=== PATIENT | male | born 1975 | race Caucasian/White ===

== ENCOUNTER 2021-01-13 07:40 | Outpatient (CLI) | payer BC, SELFPAY ==
--- NOTE | ~2021-01-13 | US_ITS ---
US retroperitoneal comp 01/13/2021 08:13 Procedure: Realtime transabdominal ultrasound of the kidneys and bladder. Indication: Decreased renal function Comparison: No prior studies for comparison. Findings: Renal echotexture is normal bilaterally without hydronephrosis, contour deforming mass or r enal calculus. The right kidney measures 11.4 cm and left kidney measures 11.3 cm. Bladder within no rmal limits. Impression: 1: Unremarkable renal ultrasound. No stones, masses or hydronephrosis. Reviewed, dictated and finalized at location B. ER ENGINEER Impression: 1: Unremarkable renal ultrasound. No stones, masses or hydronephrosis.
== END 2021-01-13 07:41 | disposition home or self-care (01) ==
LOC: ANHIMG 07:43
PROVIDERS: PCP Student in an Organized Health Care Education/Training Program; Visit Provider Student in an Organized Health Care Education/Training Program
DX: N28.9 Disorder of kidney and ureter, unspecified (principal)
CPT/HCPCS: 76770

== ENCOUNTER 2021-09-01 16:50 | Outpatient (CLI) | payer BC, SELFPAY ==
--- NOTE | ~2021-09-01 | MR_ITS ---
EXAMINATION: MR knee LT wo con DATE: 09/01/2021 17:37 INDICATION: Left knee medial collateral ligament injury. TECHNIQUE: Magnetic resonance imaging (MRI) of the left knee was performed without intravenous contra st. Sequences included coronal PD-weighted FSE, coronal PD-weighted FS FSE, sagittal T2-weighted FSE , sagittal PD-weighted FS FSE and axial PD weighted fat saturated FSE. COMPARISON: None. FINDINGS: Medial compartment: Longitudinal horizontal tear of the medial meniscus which extends to the superior articular surface a t the meniscal body, crossing the free edge and extending to the inferior articular surface at the po sterior horn. There is partial subluxation of the meniscus at the junction of the body and posterior horn inferior to the tear plane across the posterior medial rim of the medial tibial plateau with mil d underlying marrow edema. Articular cartilage is normal. Lateral compartment: Lateral meniscus is normal. Deep chondral fissure at the posterior medial aspect of the lateral tibia l plateau with tiny underlying focus of subarticular marrow edema-like signal change . Patellofemoral compartment: Deep chondral fissuring without degenerative subchondral changes at the medial and lateral patellar f acets and intervening apical ridge. Region of full-thickness chondral ulceration with subtle underlyi ng cortical irregularity and symmetrically cystlike changes at the central to lateral aspect of the l ateral trochlea. Shallow chondral ulceration at the superolateral aspect of the medial trochlea. Ligaments and tendons: Anterior and posterior cruciate ligaments are normal. There is mild increased fluid signal extending along the deep and superficial margins of the proximal medial collateral ligament which appears other padilla normal. This could be seen with low-grade strain but could also represent reactive edema related to the adjacent meniscal tear. The fibular collateral ligament complex is normal. The extensor mecha nism is normal. The visualized medial and lateral hamstring tendons as well as the iliotibial band ar e normal. Fluid: Small left knee joint effusion. Small Bach's cyst. There is edema in the medial aspect of Hoffa's fa t pad surrounding a small multiloculated ganglion cyst located anterior the anterior root of the medi al meniscus. No loose osteochondral bodies identified. Osseous/other: Bone alignment is normal. No fracture or pathologic marrow replacing process. IMPRESSION: 1. 1 longitudinal horizontal tear of the body and posterior horn of the medial meniscus which crosses from the superior to the inferior articular surfaces at the junction of the body and posterior horn. 2. 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 3. Mild edema along the otherwise normal-appearing medial collateral ligament which could be seen wit h low-grade sprain but is more likely reactive edema related to the adjacent medial meniscal tear. 2. 4. Small left knee joint effusion and small Bach's cyst. Reviewed, dictated and finalized at location A. IMPRESSION: 1. 1 longitudinal horizontal tear of the body and posterior horn of the medial meniscus which crosses from the superior to the inferior articular surfaces at the junction of the body and posterior horn. 2. 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 3. Mild edema along the otherwise normal-appearing medial collateral liga
== END 2021-09-01 16:51 | disposition home or self-care (01) ==
PROVIDERS: PCP Student in an Organized Health Care Education/Training Program
DX: S83.242A Other tear of medial meniscus, current injury, left knee, initial encounter (principal); X58.XXXA Exposure to other specified factors, initial encounter; M17.12 Unilateral primary osteoarthritis, left knee
CPT/HCPCS: 73721

== ENCOUNTER 2022-04-10 01:45 | Day surgery (SDC) | payer BC, SELFPAY ==
[2022-03-06 09:01] VITALS: BMI 25.1
--- NOTE | 2022-03-27 12:19 | PC.NURSE ---
Confirmed new date and time of procedure with patient. Patient did report a new medication and that was added to patient's medication list. Patient stated there is nothing else new that needs to be added to his chart.
[2022-04-10 13:03] VITALS: BP 117/81; PULSE 61; RESP 16; TEMP 36.6; O2SAT 99
[2022-04-10] MEDS: LACTATED RINGERS 1,000 ML 150 ML IV CONT (13:15)
--- NOTE | 2022-04-10 13:34 | WPDANESEPPF ---
Anes - Initial Pre Proc Eval Procedure: Operation Date: 04/10/22 14:00 Proposed Procedures p Screening Colonoscopy - Tejas Murillo MD Date/Time: 04/10/22 13:34 Surgeon: Tejas Murillo MD Pre Op Diagnosis: neoplasm screening Patient Data Age: 47 Gender: M Height: 1.85 m Weight: 91.1 kg Last Vital Signs Temp 98 F 04/10/22 13:03 Pulse 61 04/10/22 13:03 Resp 16 04/10/22 13:03 BP 117/81 04/10/22 13:03 Pulse Ox 99 04/10/22 13:03 O2 Del Method Room Air 04/10/22 13:03 Allergies Allergy/AdvReac Type Severity Reaction Status Date / Time No Known Allergies Allergy Verified 04/10/22 13:02 Home Medications Medication Instructions Recorded Confirmed Type cetirizine 10 mg tablet (Zyrtec) 10 mg PO DAILY 03/06/22 03/06/22 History glucosamine-chondroitin 250 mg-200 2 tablet PO TID 03/06/22 03/06/22 History mg tablet (Osteo Bi-Flex) montelukast 10 mg tablet 10 mg PO DAILY 03/06/22 03/06/22 History multivitamin with minerals-folic 1 tablet PO DAILY 03/06/22 03/06/22 History acid 0.4 mg tablet omega-3 fatty acids-vitamin E 1 cap PO DAILY 03/06/22 03/06/22 History 1,000 mg capsule rosuvastatin 5 mg tablet 5 mg PO DAILY 03/27/22 03/27/22 History Patient hx anesthesia problems: none Family hx anesthesia problems: none Results Review: All pre-operative results and documents have been reviewed as part of the pre-operative evaluation. [facility] Past Medical History Medical History (Updated 12/18/18 @ 00:00 by Morena Macedo) Seasonal allergic reaction Social History Social History Smoking status: Never smoker Alcohol intake: current Drinks per week: 8 Substance use type: does not use Living arrangements: with family Spiritual care concerns: No Anes - Eval Final PreProcedure Day of Procedure 04/10/22 13:34 Patient weight: normal Heart: regular rate and rhythm Lungs: clear to auscultation Airway: Mallampati scale class II Neurological: alert and oriented Last oral intake: >/= 8 hours ASA classification: II Emergent: no Anesthetic plan: proceed Anesthesia type and monitoring: general GIVS and standard monitoring Results Review: All pre-operative results and documents have been reviewed as part of the pre-operative evaluation. Informed Consent: The patient's anesthetic plan and its attendant risks and benefits were discussed with the patient/family/POA. Questions were solicited and answers provided to the satisfaction of the patient/family/POA.
--- NOTE | 2022-04-10 13:44 | PM.HPGS ---
History of Present Illness History of Present Illness Consent: Risks, benefits, and alternatives have been discussed and questions answered. Patient agrees to proceed with procedure. Chief complaint: neoplasm screening Narrative: Shelton Christie is a 47 year old male here for first screening colonoscopy Review of Systems Constitutional: Constitutional: Denies headache(s) and Denies weakness Eyes: Eyes: Denies blurry vision ENT: Reports Normal hearing present, Denies headache(s) and Denies neck pain Cardiovascular: Cardiovascular: Denies chest pain and Denies dyspnea Respiratory: Respiratory: Denies dyspnea Gastrointestinal: Gastrointestinal: Reports no additional gastrointestinal complaints Genitourinary: Genitourinary: Denies dysuria Musculoskeletal: Musculoskeletal: Denies neck pain Integumentary/Breasts: Skin/Breast: Denies dry skin Neurologic: Reports Normal hearing present, Denies headache(s) and Denies weakness Psychiatric: Psychiatric: Denies anxiety Endocrine: Endocrine: Denies change in body appearance Hematologic/Lymphatic: Hematologic/Lymphatic: Denies easy bleeding Allergic/Immunologic: Allergic/Immunologic: Denies urticaria PMF Past Medical History Medical History (Updated 04/10/22 @ 13:44 by Tejas Murillo MD) Colon cancer screening Seasonal allergic reaction Social History Social History Smoking status: Never smoker Alcohol intake: current Drinks per week: 8 Substance use type: does not use Living arrangements: with family Spiritual care concerns: No Meds Home Medications and Allergies Home Medications Medication Instructions Recorded Confirmed Type cetirizine 10 mg tablet (Zyrtec) 10 mg PO DAILY 03/06/22 03/06/22 History glucosamine-chondroitin 250 mg-200 2 tablet PO TID 03/06/22 03/06/22 History mg tablet (Osteo Bi-Flex) montelukast 10 mg tablet 10 mg PO DAILY 03/06/22 03/06/22 History multivitamin with minerals-folic 1 tablet PO DAILY 03/06/22 03/06/22 History acid 0.4 mg tablet omega-3 fatty acids-vitamin E 1 cap PO DAILY 03/06/22 03/06/22 History 1,000 mg capsule rosuvastatin 5 mg tablet 5 mg PO DAILY 03/27/22 03/27/22 History Allergies Allergy/AdvReac Type Severity Reaction Status Date / Time No Known Allergies Allergy Verified 04/10/22 13:02 Vital Signs Vital Signs - 24 hr 04/10/22 13:03 Temperature 98 F Pulse Rate 61 Respiratory Rate 16 Blood Pressure 117/81 Pulse Oximetry 99 Oxygen Delivery Room Air Exam Const: General: comfortable and no acute distress HENMT: Face/Nose/Sinus: Normal nares present Eyes: General: appearance normal, both eyes and all related structures Neck: Neck: no JVD Resp: Auscultation: clear to auscultation bilaterally Cardio: Rate: regular rate Rhythm: regular rhythm GI: Inspection: non-distended GI Palp: Yes Soft to palpation Skin: General skin exam: normal color Neuro: General: gait normal Speech: normal speech Extrem: General: normal to inspection Psych: Mental Status: mental status grossly normal Assessment and Plan Assessment and plan (1) Colon cancer screening: Code(s): Z12.11 - Encounter for screening for malignant neoplasm of colon Status: Acute Assessment and Plan: colonoscopy
[2022-04-10 14:06] VITALS: BP 101/67; PULSE 80; RESP 19; O2SAT 98
[2022-04-10 14:16] VITALS: BP 105/71; PULSE 70; RESP 22; O2SAT 97
[2022-04-10 14:26] VITALS: BP 121/70; PULSE 68; RESP 19; O2SAT 98
== END 2022-04-10 14:54 | disposition home or self-care (01) ==
PROVIDERS: PCP Student in an Organized Health Care Education/Training Program; Visit Provider Internal Medicine Gastroenterology
PROC: 0DJD8ZZ Inspection of Lower Intestinal Tract, Via Natural or Artificial Opening Endoscopic (ICD-10-PCS; CPT 45378; principal; 2022-04-10 14:00)
DX: Z12.11 Encounter for screening for malignant neoplasm of colon (principal); K63.5 Polyp of colon; K64.8 Other hemorrhoids
CPT/HCPCS: 45385; 88305; J2704; J7120

== ENCOUNTER 2022-11-03 13:35 | Emergency (ER) | payer BC, SELFPAY ==
--- NOTE | ~2022-11-03 | XR_ITS ---
Clinical Indication: Chest pain PA and lateral views of the chest: Comparison: None Findings: The lungs are clear, without evidence of focal consolidation or pleural effusion. Cardiome diastinal silhouette is within normal limits. Bones and soft tissues are unremarkable. Impression: Normal chest. Reviewed, dictated and finalized at location . Impression: Normal chest.
--- NOTE | 2022-11-03 13:37 | ECG_ITS ---
Measurements Intervals [place] Rate: 65 P: 33 ID: 153 QRS: 35 QRSD: 103 T: 37 QT: 389 QTc: 406 Interpretive Statements SINUS RHYTHM BORDERLINE R WAVE PROGRESSION, ANTERIOR LEADS MINIMAL Q WAVES- INFERIOR LEADS BASELINE ARTIFACT- I, III, AVR, AVL BORDERLINE ECG NO PREVIOUS ECG AVAILABLE FOR COMPARISON Electronically Signed On 11-03-2022 13:55:33 CDT by Ruben Shabazz D.O.
[2022-11-03 13:40] VITALS: BP 155/95; PULSE 69; RESP 18; TEMP 36.7; O2SAT 100
[2022-11-03 13:59] LABS: Basophils Absolute Auto 0.1 K/mm3 (0.0-0.1); Basophils Percent Auto 0.6 % (0.2-1.2); Eosinophils Absolute Auto 0.3 K/mm3 (0-0.3); Eosinophils Percent Auto 2.7 % (0-4.4); Hemoglobin 16.2 g/dL (14.0-18.0); Immature Granulocyte Absolute 0.03 K/mm3 (0.00-0.031); Immature Granulocyte Percent A 0.3 % (0-0.5); Lymphocytes Absolute Auto 2.94 K/mm3 (0.9-3.2); Lymphocytes Percent Auto 28.3 % (18.3-44.2); Mean Corpuscular HGB Conc 33.1 g/dl (32-36); Mean Corpuscular Hemoglobin 31.3 pg (26-34); Mean Corpuscular Volume 94.6 fl (80-100); Mean Platelet Volume 11.8 fl (7.4-10.4); Monocytes Percent Auto 9.2 % (2.6-8.5); Neutrophils Absolute Auto 6.1 K/mm3 (1.3-6.7); Neutrophils Percent Auto 58.9 % (45.5-73.1); Platelet Count Result 200 k/mm3 (150-375); Red Blood Count 5.18 M/mm3 (4.6-6.20); White Blood Count 10.4 K/mm3 (4.5-10.0)
[2022-11-03 14:11] LABS: Alanine Aminotransferase 32 U/L (6-50); Albumin Level 4.8 g/dL (3.5-5.1); Alkaline Phosphatase 60 U/L (38-126); Anion Gap 9 mmol/L (8-16); Aspartate Amino Transferase 41 U/L (17-59); Bilirubin,Total 0.9 mg/dL (0.2-1.3); Blood Urea Nitrogen 15 mg/dL (9-20); Carbon Dioxide 26 mmol/L (22-30); Chloride 105 mmol/L (98-107); Estimated CRCL calculation 93 ml/min; Estimated Glomerular Filt Rate > 60; Glucose 91 mg/dL (65-110); Lipase 101 U/L (23-300); Potassium 4.3 mmol/L (3.4-5.0); Sodium 140 mmol/L (137-145)
[2022-11-03 14:14] LABS: INR 0.9; Prothrombin Time 12.9 Seconds (11.1-14.7)
[2022-11-03 14:15] LABS: Partial Thromboplastin Time 23.8 SECONDS (22.3-36.8)
[2022-11-03 14:18] LABS: Troponin I < 0.012 ng/mL (0.000-0.034)
[2022-11-03 17:16] LABS: Troponin I < 0.012 ng/mL (0.000-0.034)
== END 2022-11-03 14:00 | disposition left against medical advice (07) ==
PROVIDERS: Emergency Provider Emergency Medicine; PCP Student in an Organized Health Care Education/Training Program
DX: R07.9 Chest pain, unspecified (principal)
CPT/HCPCS: 36415; 71046; 80053; 83690; 84484; 85025; 85610; 85730; 93005; 99199

== ENCOUNTER 2024-07-14 16:55 | Emergency (ER) | payer BC, SELFPAY ==
[2024-07-14] VITALS (37 sets, daily range): BP systolic 110–166; BP diastolic 62–102; PULSE 101–134; RESP 12–30; TEMP 36.8; O2SAT 95–100
--- NOTE | ~2024-07-14 | CT_ITS ---
CTA chest PE protocol Ordering provider: Riya Baumann PA-C History: 49 years Male with . sob cp, uri, tachy . Comparison: None. Technique: CT angiogram chest was performed following timed intravenous injection of contrast. Thin s lice axial images and reformatted coronal images were obtained. Three dimensional reformatted images of the chest were also obtained using a [employer] workstation. . Automated exposure control and iterati ve reconstruction technique were employed. The dose-length product was 467.86 mGy-cm. 100 mL Omnipaqu e 350 was given IV. Findings: PULMONARY ARTERIES: No pulmonary embolus. VISUALIZED THORACIC INLET: Normal. MEDIASTINUM: Aorta/coronary arteries: The thoracic aorta is normal. Heart/other: The heart is not enlarged. Lymph nodes: No mediastinal or hilar adenopathy. LUNGS: Bibasilar atelectasis versus pneumonia. Serpiginous density seen in the right parahilar area which me asures 2.5 x 0.[address] follow-up is advised. No pulmonary nodules or masses. No infiltrates or effusions. No pneumothorax. VISUALIZED UPPER ABDOMEN: Small sliding hiatus hernia. Tiny cyst in the right lobe of the liver. Othe rwise, the visualized upper abdomen is normal. MUSCULOSKELETAL: Soft tissues: The superficial soft tissues are normal. Bones: Age appropriate degenerative changes of the spine. IMPRESSION: 1. No pulmonary embolism. 2. Bibasilar atelectasis versus pneumonia. Clinical correlation and follow-up advised. 3. Small sliding hiatus hernia Reviewed, dictated and finalized at location A.
--- NOTE | ~2024-07-14 | XR_ITS ---
XR chest 2V Ordering provider: Riya Baumann PA-C History: 49 years Male with . cough, uri, sob . Comparison: November 03, 2022 FINDINGS: MEDIASTINUM: The cardiac silhouette is not enlarged. LUNGS: No infiltrates, effusions or pneumothorax. OTHER: No free air under the diaphragm. Degenerative changes of the spine. IMPRESSION: No acute cardiopulmonary pathology. Reviewed, dictated and finalized at location A.
--- NOTE | 2024-07-14 17:13 | ECG_ITS ---
Test Date: 2024-07-14 17:57:40 Measurements Intervals [place] Rate: 117 P: 47 NM: 124 QRS: 15 QRSD: 106 T: 50 QT: 341 QTc: 476 Interpretive Statements SINUS TACHYCARDIA NONSPECIFIC T-WAVE ABNORMALITY ABNORMAL RHYTHM ECG No previous ECG available for comparison Electronically Signed On 07-15-2024 07:38:01 CDT by Yousif Zendejas M.D.
--- OUTSIDE RECORDS SUMMARY | 2024-07-14 17:33 | XMS_ITS | Referral Summary ---
[facility] Organization [facility] Address [address] [place] [address] Care Team Providers Care Fish And Game Club Manager Name Role Phone Jose Collazo Primary Care Provide r Allergies Active Allergy Reactions Criticality Noted Date Comments Amoxicillin Hives,Itching High 03/03/2023 Medications cetirizine (ZyrTEC) 10 mg tabletIndicatio ns:pt takes daily Take 1 tablet (10 mg total) by mouth daily Active montelukast (SINGULAIR) 10 mg tabletIndicatio ns:Seasonal Allergic Rhinitis,pt takes daily Take 1 tablet (10 mg total) by mouth daily 08/12/2021 Active docosahexaenoic acid/epa (FISH OIL ORAL)Indication s:supplement Take 1,200 mg by mouth daily Active glucosamine/cho ndr esquivel A sod (OSTEO BI-FLEX ORAL) Take 1 tablet by mouth daily Active MULTIVITAMIN ORALIndications :supplement Take 1 tablet by mouth daily Active amoxicillin-cla vulanate (AUGMENTIN) 875-125 mg per tablet Take 1 tablet by mouth 2 (two) times a day 03/01/2023 Active aspirin 81 mg chewable tablet Take 1 tablet (81 mg total) by mouth daily Active atorvastatin (LIPITOR) 10 mg tablet 0.5 tablets (5 mg total) 04/16/2023 Active doxycycline hyclate 100 mg capsule TAKE 1 CAPSULE BY MOUTH TWICE A DAY FOR 10 DAYS 03/03/2023 Active famotidine (PEPCID) 20 mg tablet Take 1 tablet (20 mg total) by mouth 2 (two) times a day 11/16/2022 Active fexofenadine (VIVIAN) 180 mg tablet Take 1 tablet (180 mg total) by mouth daily as needed Active Active Problems Problem Noted Date Diagnosed Date Hyperlipidemia 03/01/2023 Acute pain of left knee 07/20/2022 Effusion of left knee 07/20/2022 S/P arthroscopic partial medial meniscectomy 04/2021 Complex tear of medial menis cus of left knee as current injury 09/22/2021 Overview (09/22/2021): Added automatically from request for surgery [id number] Seasonal allergic rhinitis 08/28/2019 Social History Tobacco Use Types Packs/Day Years Used Date Smoking Tobacco: Never Smokeless Tobacco: Never AUDIT-C Answer Date Recorded Q1: How often do you have a drink containing alcohol? 4 or more times a week 09/22/2021 Q2: How many drinks containi ng alcohol do you have on a typical day when you are drinking? 1 or 2 Frequency of Binge Drinking Not on file 09/2021 Personal Safety Answer Date Recorded Getting School Help Needed Not on file 02/19 Sex and Gender Information Value Date Recorded Sex Assigned at Not on file Legal Sex Male 4:09 PM CDT Gender Identity Male 07/22/2021 4:30 PM CDT Sexual Orientation Straight 06/27/2022 5: 44 PM CDT Last Filed Vital Signs Vital Sign Reading Time Taken Comments Blood Pressure 112/80 04/21/2023 12:05 PM CVIR TECH Pulse 80 04/21/2023 12:05 PM CVIR TECH Temperature 36.7 C (98.1 F) 04/21/2023 12:05 PM CVIR TECH Respiratory Rate 16 04/21/2023 12:05 PM CVIR TECH Oxygen Saturation 98% 04/21/2023 12:05 PM CVIR TECH Inhaled Oxygen Concentration - - Weight 93 kg (205 lb) 04/21/2023 12:05 PM CVIR TECH Height 185.4 cm (6' 1) 04/21/2023 12:05 PM CVIR TECH Body Mass Index 27.05 04/21/2023 12:05 PM CVIR TECH Plan of Treatment Not on file Insurance BLUE ACCESS OOS BLUE ACCESS OOS BLUE ACCESS OOS Advance Directives For more information, please contact: [phone] * Full Code (Latest Code Status on File) Date Activated Date Inactivated Comments 10/03/2021 1:05 PM 10/03/2021 6:37 PM Care Teams [employer] And Game Club Manager Relationship Specialty Start Date End Date Jose Collazo DO [address] [place] [id number] PCP - General Family Medicine 08/21/21
--- OUTSIDE RECORDS SUMMARY | 2024-07-14 17:33 | XMS_ITS | Clinical Summary ---
[facility] Organization [facility] Address [address] [place] [address] Care Team Providers Care Zigzag Topstitcher Name Role Phone Jose Collazo Primary Care [...] (09/22/2021): Added automatically from request for surgery [id number] Seasonal allergic rhinitis 08/28/2019 Surgical History Surgery Date Site/Laterality Comments CYST REMOVAL 02/15/1999 - 02/15/2000 Medical History Medical History Date Comments PONV (postoperative nausea and vomiting) Allergic rhinitis Family History Medical History Relation Name Comments Arthritis Father Kenneth Cancer Father Kenneth Arthritis Mother Zaira Gout Mother Zaira Heart disease Mother Zaira Hypertension Mother Zaira Kidney disease Mother Zaira Mental illness Mother Zaira Anesthesia problems Neg Hx Relation Name Status Comments Father Kenneth Mother Zaira Social History Tobacco Use Types Packs/Day Years [...] Orientation Straight 06/27/2022 5: 44 PM CDT Obstetrics History Last Filed Vital Signs Vital Sign Reading Time Taken Comments Blood Pressure 112/80 04/21/2023 12:05 PM CLERICAL ADJUDICATOR Pulse 80 04/21/2023 12:05 PM CLERICAL ADJUDICATOR Temperature 36.7 C (98.1 F) 04/21/2023 12:05 PM CLERICAL ADJUDICATOR Respiratory Rate 16 04/21/2023 12:05 PM CLERICAL ADJUDICATOR Oxygen Saturation 98% 04/21/2023 12:05 PM CLERICAL ADJUDICATOR Inhaled Oxygen Concentration - - Weight 93 kg (205 lb) 04/21/2023 12:05 PM CLERICAL ADJUDICATOR Height 185.4 cm (6' 1) 04/21/2023 12:05 PM CLERICAL ADJUDICATOR Body Mass Index 27.05 04/21/2023 12:05 PM CLERICAL ADJUDICATOR Plan of Treatment Health Maintenance Due Date Last Done Comments Colon Cancer Screening-Colonoscopy 1977 Depression Screening 1977 Hepatitis C Screening 1977 Hepatitis B Screening 1995 Regular Well Visit/Exam 18-64 1995 Covid-19 Vaccine ( season) 2023 02/01/2021, 03/14/2020, 02/15/2020 Influenza Vaccine (Season Ended) 2024 11/17/2022, 12/28/2021, 11/30/2020, Additional history exists DTaP/Tdap/Td Vaccine (2 - Td or Tdap) 05/06/2029 05/07/2019 Pneumococcal vaccine <65 Aged Out No longer eligible based on patient's age to complete this topic Insurance [employer] OOS [employer] OOS Advance Directives For more information, please contact: [phone] * Full Code (Latest Code Status on File) Date Activated Date Inactivated Comments 10/03/2021 1:05 PM 10/03/2021 6:37 PM Care Teams Zigzag Topstitcher Relationship Specialty Start Date End Date Jose Collazo DO [address] [place] [id number] PCP - General Family Medicine 08/21/21
[2024-07-14] MEDS: SODIUM CHLORIDE 0.9% IV 1,000 ML 999 ML IV CONT ×2 (17:40→18:21)
[2024-07-14] MEDS: ACETAMINOPHEN 500 MG TABLET 1000 MG PO (17:40)
--- NOTE | 2024-07-14 17:42 | ED_ITS ---
HPI - Weakness General Chief complaint: Weakness Stated complaint: weakness Time Seen by Provider: 07/14/24 17:03 Source: patient Mode of arrival: EMS Limitations: no limitations History of Present Illness HPI Narrative: Patient is a 49-year-old male who presents the ED via EMS with report of URI symptoms/shortness of breath. Patient reports he has been sick since Wednesday with URI symptoms, including cough, congestion, sinus pressure, intermittent fevers. Patient states his children and have been sick as well. Patient began feeling weak, lightheaded, short of breath today, which prompted him to contact EMS. He states it felt as though rubber was in between his lungs. He reports chest pain with coughing, denies pain at rest. Has not taken anything for his symptoms. States he took use next 2 days ago, but this dried him out. Related Data Home Medications ?Medication ?Instructions ?Recorded ?Confirmed ?Last Taken ?Type cetirizine 10 mg tablet (Zyrtec) 10 mg PO DAILY 03/06/22 03/06/22 Unknown History glucosamine-chondroitin 250 mg-200 2 tablet PO TID 03/06/22 03/06/22 Unknown History mg tablet (Osteo Bi-Flex) montelukast 10 mg tablet 10 mg PO DAILY 03/06/22 03/06/22 Unknown History multivitamin with minerals-folic 1 tablet PO DAILY 03/06/22 03/06/22 Unknown History acid 0.4 mg tablet omega-3 fatty acids-vitamin E 1 cap PO DAILY 03/06/22 03/06/22 Unknown History 1,000 mg capsule rosuvastatin 5 mg tablet 5 mg PO DAILY 03/27/22 03/27/22 Unknown History Allergies Allergy/AdvReac Type Severity Reaction Status Date / Time No Known Allergies Allergy Verified 07/14/24 17:03 Review of Systems 2 Review of Systems: All systems reviewed & are unremarkable except as noted in HPI. All systems reviewed & are unremarkable except as noted in HPI and below PMFSH Past Medical History Medical History Colon cancer screening Seasonal allergic reaction Social History Social History Smoking status: Never smoker Alcohol intake: current Drinks per week: 8 Substance use type: does not use Living arrangements: with family Spiritual care concerns: No Exam 2 Narrative: GENERAL: Anxious appearing, well-nourished, non-toxic, in no acute distress. HEAD: Normocephalic, atraumatic. RESPIRATORY: Airway patent, respirations nonlabored. Clear to auscultation bilaterally, no rales, rhonchi, wheezing. No significant focal lung sounds. CARDIOVASCULAR: Tachycardic with regular rhythm without murmurs, rubs, or gallops. Radial pulses intact MUSCULOSKELETAL: Moves all extremities. No gross deformities. No pieipheral edema. SKIN: Warm, dry, normal color. NEURO: A&O X3. Speech clear. Cranial nerves II-XII grossly intact. Steady gait. No ataxic movements. PSYCHIATRIC: Appropriate mood and affect. Normal interaction. Course Vital Signs Vital signs: Vital Signs Temperature 98.2 F 07/14/24 16:58 Pulse Rate 127 H 07/14/24 16:58 Respiratory Rate 24 H 07/14/24 16:58 Blood Pressure 160/102 H 07/14/24 16:58 Pulse Oximetry 100 07/14/24 16:58 Oxygen Delivery Room Air 07/14/24 16:58 Temperature 98.2 F 07/14/24 16:58 Pulse Rate 109 H 07/14/24 21:23 Respiratory Rate 26 H 07/14/24 19:24 Blood Pressure 117/77 07/14/24 21:23 Pulse Oximetry 97 07/14/24 18:31 Oxygen Delivery Room Air 07/14/24 16:58 MDM - Weakness MDM Narrative Medical decision making narrative: Patient presented to ED with several day history of URI symptoms, reporting shortness of breath today. Notes several family members have had similar symptoms. Tachycardic and tachypneic upon arrival. Afebrile here. Will give Tylenol, fluids. EKG with sinus tachycardia, no concerning ST changes Trop undetectable Laboratory studies with white blood cell count of 13.9. Neutrophil predominance. No bandemia. CMP unremarkable. Viral swabs are negative. Chest x-ray clear D-dimer was within normal range, but borderline. Patient has been persistently tachycardic up to 130s in the ED. CTA of chest was obtained to rule out PE, no evidence of PE, but does show bibasilar pneumonia. Will treat for such. Discussed lab and imaging findings with patient. Tachycardia has improved with fluid administration. Down into the low 100s. Feel patient is safe for discharge home on oral antibiotics. Recommended close follow-up with PCP for further evaluation. He agrees with plan. Given return precautions. Discharged in stable condition. Medical Records Attestation: I reviewed the patient's medical records. Lab Data Attestation: I reviewed the patient's lab results. 07/14/24 17:27 07/14/24 17:27 Labs: Lab Results 07/14/24 Range/Units 17:27 WBC 13.9 H (4.5-10.0) K/mm3 RBC 5.30 (4.6-6.20) M/mm3 Hgb 16.4 (14.0-18.0) g/dL Hct 49.8 (42.0-52.0) % MCV 94.0 (80-100) fl MCH 30.9 (26-34) pg MCHC 32.9 (32-36) g/dl RDW 12.3 (11.5-14.5) % Plt Count 193 (150-375) k/mm3 MPV 11.9 H (7.4-10.4) fl Immature Gran % (Auto) 0.4 (0-0.5) % Neut % (Auto) 85.1 H (45.5-73.1) % Lymph % (Auto) 9.2 L (18.3-44.2) % [place] % (Auto) 4.0 (2.6-8.5) % Eos % (Auto) 0.9 (0-4.4) % Baso % (Auto) 0.4 (0.2-1.2) % Lymph # (Auto) 1.28 (0.9-3.2) K/mm3 [place] # (Auto) 0.6 (0.1-0.6) K/mm3 Eos # (Auto) 0.1 (0-0.3) K/mm3 Baso # (Auto) 0.1 (0.0-0.1) K/mm3 Abs Immat Gran (auto) 0.05 H (0.00-0.031) K/mm3 Absolute Neuts (auto) 11.8 H (1.3-6.7) K/mm3 Absolute Nucleated RBC 0.000 (0.0-0.012) K/mm3 Nucleated RBC % 0.0 (0.0-0.2) % PT 12.9 (11.1-14.7) Seconds INR 0.9 APTT 24.6 (22.3-36.8) Seconds D-Dimer 0.43 (<0.48) ug/mL Sodium 142 (137-145) mmol/L Potassium 3.6 (3.4-5.0) mmol/L Chloride 104 (98-107) mmol/L Carbon Dioxide 25 (22-30) mmol/L Anion Gap 13 H (4-12) mmol/L BUN 15 (9-20) mg/dL Creatinine 1.00 (0.7-1.3) mg/dL Estim Creat Clear Calc 89 ml/min Estimated GFR > 60 (59 - ) Glucose 102 (65-110) mg/dL Calcium 10.4 H (8.4-10.2) mg/dL Total Bilirubin 0.6 (0.2-1.3) mg/dL AST 41 (17-59) U/L ALT 37 (6-50) U/L Alkaline Phosphatase 86 (38-126) U/L Troponin I < 0.012 (0.000-0.034) ng/mL Total Protein 9.0 H (6.3-8.2) g/dL Albumin 4.8 (3.5-5.1) g/dL Influenza A (RT-PCR) Negative (Negative) Influenza B (RT-PCR) Negative (Negative) RSV (RT-PCR) Negative (Negative) SARS-CoV-2 RNA (RT-PCR) Negative (Negative) Imaging Data Attestation: I personally reviewed and interpreted this imaging study as follows: Radiologist's impression: ITS Impressions Chest X-Ray 07/14/24 17:41 IMPRESSION: No acute cardiopulmonary pathology. Chest CTA 07/14/24 20:11 IMPRESSION: 1. No pulmonary embolism. 2. Bibasilar atelectasis versus pneumonia. Clinical correlation and follow-up advised. 3. Small sliding hiatus hernia ECG Data EKG #1: Attestation: I personally reviewed and interpreted this ECG as follows: ECG completion date: 07/14/24 ECG completion time: 17:57 EKG Interpretation: tachycardia (117), sinus rhythm and no ST changes Discharge Plan Discharge Clinical Impression: Pneumonia Qualifiers: Pneumonia type: due to unspecified organism Laterality: unspecified laterality Lung location: unspecified part of lung Qualified Code(s): J18.9 - Pneumonia, unspecified organism Patient Disposition: Home Condition: Stable Instructions: Antibiotic Form, Community Acquired Pneumonia (ED), Viral Syndrome (ED) Additional Instructions: Take antibiotics as prescribed for pneumonia. Stay well-hydrated at home. Recommend electrolyte rich fluids, Gatorade, Pedialyte, body armor. Tessalon Perles as needed for cough. Tylenol and Ibuprofen for discomfort and/or fevers. Recommend mett-ylo-[id number] cough and cold medicines for symptom relief, Delsym, Mucinex, DayQuil, NyQuil, Sudafed, Robitussin, TheraFlu. Follow with primary care doctor upon resolution of symptoms. Return to the ED if you experience chest pain, difficulty breathing, unable to keep down food or drink, severe pain, or any other symptoms of concern. Patient Language: Ukrainian Prescriptions: New benzonatate 200 mg capsule 200 mg PO TID PRN (Reason: cough) Qty: 15 0RF doxycycline monohydrate 100 mg tablet 100 mg PO BID 5 Days Qty: 10 0RF No Action cetirizine [Zyrtec] 10 mg Tablet 10 mg PO DAILY montelukast 10 mg tablet 10 mg PO DAILY glucosamine-chondroitin [Osteo Bi-Flex] 250-200 mg Tablet 2 tablet PO TID Rx Instructions: give after food/meal Fish Oil 1,000 mg Capsule 1 cap PO DAILY multivit with min-folic acid [Adult One Daily Multivitamin] 0.4 mg Tablet 1 tablet PO DAILY rosuvastatin 5 mg tablet 5 mg PO DAILY Follow-up/Referrals: Zay,DO Jose [Primary Care Provider] - Time of Disposition: 21:11
[2024-07-14 17:47] LABS: Alanine Aminotransferase 37 U/L (6-50); Albumin Level 4.8 g/dL (3.5-5.1); Alkaline Phosphatase 86 U/L (38-126); Anion Gap 13 mmol/L (4-12); Aspartate Amino Transferase 41 U/L (17-59); Bilirubin,Total 0.6 mg/dL (0.2-1.3); Blood Urea Nitrogen 15 mg/dL (9-20); Calcium 10.4 mg/dL (8.4-10.2); Carbon Dioxide 25 mmol/L (22-30); Chloride 104 mmol/L (98-107); Estimated CRCL calculation 89 ml/min; Estimated Glomerular Filt Rate > 60; Glucose 102 mg/dL (65-110); Potassium 3.6 mmol/L (3.4-5.0); Sodium 142 mmol/L (137-145)
[2024-07-14 17:55] LABS: INR 0.9; Partial Thromboplastin Time 24.6 Seconds (22.3-36.8); Prothrombin Time 12.9 Seconds (11.1-14.7)
[2024-07-14 17:59] LABS: Troponin I < 0.012 ng/mL (0.000-0.034)
[2024-07-14 18:01] LABS: Basophils Absolute Auto 0.1 K/mm3 (0.0-0.1); Basophils Percent Auto 0.4 % (0.2-1.2); Eosinophils Absolute Auto 0.1 K/mm3 (0-0.3); Eosinophils Percent Auto 0.9 % (0-4.4); Hematocrit 49.8 % (42.0-52.0); Hemoglobin 16.4 g/dL (14.0-18.0); Immature Granulocyte Absolute 0.05 K/mm3 (0.00-0.031); Immature Granulocyte Percent A 0.4 % (0-0.5); Lymphocytes Absolute Auto 1.28 K/mm3 (0.9-3.2); Lymphocytes Percent Auto 9.2 % (18.3-44.2); Mean Corpuscular HGB Conc 32.9 g/dl (32-36); Mean Corpuscular Hemoglobin 30.9 pg (26-34); Mean Platelet Volume 11.9 fl (7.4-10.4); Monocytes Absolute Auto 0.6 K/mm3 (0.1-0.6); Neutrophils Absolute Auto 11.8 K/mm3 (1.3-6.7); Neutrophils Percent Auto 85.1 % (45.5-73.1); Platelet Count Result 193 k/mm3 (150-375); Red Cell Distribution Width 12.3 % (11.5-14.5); White Blood Count 13.9 K/mm3 (4.5-10.0)
[2024-07-14 18:10] LABS: Influenza A QL RT-PCR Negative (Negative); Influenza B QL RT-PCR Negative (Negative); RSV RNA, RT-PCR Negative (Negative); SARS-CoV-2 RNA PCR Negative (Negative)
[2024-07-14 18:16] LABS: D Dimer 0.43 ug/mL (<0.48)
[2024-07-14] MEDS: LEVALBUTEROL NEB 1.25 MG/3 ML INHALATION (19:16)
[2024-07-14] MEDS: IPRATROPIUM BR 0.02% INH SOLN 0.5 MG/2.5 ML VIAL INHALATION (19:16)
[2024-07-14] MEDS: DOXYCYCLINE HYCLATE 100 MG TABLET PO (22:18)
== END 2024-07-14 23:00 | disposition home or self-care (01) ==
PROVIDERS: Emergency Provider Physician Assistant; PCP Student in an Organized Health Care Education/Training Program
DX: J18.9 Pneumonia, unspecified organism (principal); Z20.822 Contact with and (suspected) exposure to COVID-19; K44.9 Diaphragmatic hernia without obstruction or gangrene
CPT/HCPCS: 36415; 71046; 71275; 80053; 84484; 85025; 85380; 85610; 85730; 87637; 93005; 94640; 96360; 96361; 99284; A9270; J7030; Q9967

== ENCOUNTER 2024-10-31 07:39 | Outpatient (CLI) | payer BC, SELFPAY ==
--- NOTE | ~2024-10-31 | CT_ITS ---
EXAMINATION:CT diagnostic chest wo con DATE: 10/31/2024 07:57 INDICATION: Pneumonia. Chronic cough. TECHNIQUE: Computed tomography (CT) of the chest was performed without intravenous contrast. Automated exposure control and iterative reconstruction technique were employed. The dose-length product (DLP) was 211.93 mGy-cm. COMPARISON: Chest CT 07/14/24 FINDINGS: There is mild scarring in paraspinal right lower lobe. There is mild atelectasis bilaterally. There are mild groundglass opacities in right upper lobe with interval improvement. No pleural effusion. The heart size is normal. No pericardial effusion. There is mild thoracic spondylosis. There is mild chronic anterior wedging of multiple vertebral bodies. IMPRESSION: 1. Mild groundglass opacities in right upper lobe with interval improvement, consistent with pneumonia. Reviewed, dictated and finalized at location E. IMPRESSION: 1. Mild groundglass opacities in right upper lobe with interval improvement, co nsistent with pneumonia.
== END 2024-10-31 07:40 | disposition home or self-care (01) ==
PROVIDERS: PCP Student in an Organized Health Care Education/Training Program; Visit Provider Student in an Organized Health Care Education/Training Program
DX: R05.3 Chronic cough (principal); R91.8 Other nonspecific abnormal finding of lung field; J98.4 Other disorders of lung; Z87.01 Personal history of pneumonia (recurrent)
CPT/HCPCS: 71250